=== PATIENT | male | born 1980 | race Caucasian/White ===

== ENCOUNTER 2023-03-13 00:16 | Emergency (ER) | payer BC ==
[2023-03-13] MEDS ORDERED: Heparin Sodium 5,000 Units/ML Vial IVPUSH STA (01:24)
[2023-03-13] MEDS ORDERED: Heparin Sodium/D5W 25,000 UNITS/500 ML BAG IV SCH (01:30)
[2023-03-13] MEDS ORDERED: Aspirin 81 MG Tab.Chew PO STA (01:30)
[2023-03-13 01:37] LABS: CORONAVIRUS COVID-19 NAA NEGATIVE (NEGATIVE)
[2023-03-13] MEDS ORDERED: Rosuvastatin 10 MG Tab PO STA (01:48)
[2023-03-13] MEDS ORDERED: Metoprolol Tartrate 25 MG Tab PO STA (01:48)
== END 2023-03-13 07:46 | disposition home or self-care (01) ==
LOC: JD.ED 00:16
DX: F10.229 Alcohol dependence with intoxication, unspecified (principal); R77.8 Other specified abnormalities of plasma proteins; I11.0 Hypertensive heart disease with heart failure; I50.9 Heart failure, unspecified; F17.220 Nicotine dependence, chewing tobacco, uncomplicated; Z79.899 Other long term (current) drug therapy; Z86.16 Personal history of COVID-19; Z20.822 Contact with and (suspected) exposure to COVID-19; Y90.6 Blood alcohol level of 120-199 mg/100 ml
CPT/HCPCS: 0241U; 36415; 71045; 80053; 80306; 80307; 83880; 84484; 85025; 85379; 85610; 85730; 93005; 96365; 96366; 96375; 99285; A9270; J1644; 93010; 99284